=== PATIENT | male | born 1975 ===

== ENCOUNTER → 2019-02-05 | Outpatient (CLI) | payer OTHER ==
--- NOTE | 2019-02-05 13:40 | RAD ---
EXAM: Right hand, 2 views. HISTORY: Numbness. COMPARISON: None. FINDINGS: 2 views of the right hand are obtained. There is no fracture, dislocation or subluxation. There is a healed fifth metacarpal fracture. IMPRESSION: No acute osseous finding. Electronically signed by: Eva Lazar MD (02/05/2019 1:37 PM) [facility]
== END | disposition home or self-care (01) ==
LOC: RAD 10:42
PROVIDERS: ATTEND Surgery
DX: M79.641 Pain in right hand (principal); R20.0 Anesthesia of skin
CPT/HCPCS: 73120